=== PATIENT | male | born 1960 | race Caucasian/White ===

== ENCOUNTER 2017-09-03 15:00 | Outpatient (RCR) | payer BC ==
[2015-10-06 09:46] VITALS: Wt 88.6 kg
[~2017-09-03 15:00] MED LIST: ACET500T68 PO; ATOR10TA24 PO; CEP500 PO; LEVO750T27 PO; LISI-374 PO; LISI20TA29 PO; LOR5/325 PO; METR-160 PO; MULT1TAB54 PO; OXYC-865 PO; OXYC5TAB38 PO; PER PO; PRED20TA6 PO; RIVA10TA PO; XELOD500PT GT
[2017-09-03 15:28] VITALS: BP 158/103
[2017-09-03 15:40] LABS: PLATELET COUNT, AUTOMATED 194 K/uL (150-450)
--- NOTE | 2017-09-03 20:22 | ONCOLOGY FOLLOW UP NOTE ---
EVENT DATE: September 03, 2017 DIAGNOSES 1. 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 2. Hypertension. 3. Diverticulitis. 4. Hypercholesterolemia. CHIEF COMPLAINT The patient is here today for followup of his colon cancer. ONCOLOGY HISTORY The patient is a 57-year-old male. The patient is here today for followup of his colon cancer. He is doing really very well and his skin rash from capecitabine is getting much better currently. PRESENTATION Left upper quadrant pain associated with intermittent fevers. DIAGNOSTIC EVALUATION 1. CT of abdomen and pelvis done on September 17, 2015 revealed persistent decreased descending colon wall thickening and surrounding inflammation. There may be organizing fluid collection seen posteriorly measuring approximately 3.6 x 4 x 2 x 3.5 cm; however, this collection is not completely walled off at the time of the scan. Possibilities could be colonic mass with resolving walled off perforation. There was no internal gas or free air in the abdomen. 2. Colonoscopy done on October 04, 2015 showed an obstruction at 45 cm. Biopsies were obtained and came back positive for moderately differentiated invasive colonic adenocarcinoma. PROCEDURE Left hemicolectomy with primary anastomosis done on October 05, 2015. PATHOLOGY This came back positive for descending colon invasive, moderately differentiated adenocarcinoma with 16 lymph nodes negative for metastasis. Tumor penetrates through the serosa and minimally enters into the pericolonic adipose tissue. Histology grade as low grade, moderately differentiated. Lymphovascular invasion was negative. Margins were negative. 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 TREATMENT The patient received two cycles of capecitabine, completed in January 2016 and treatment was started because of severe skin reaction with hand/foot syndrome and allergic skin reaction. HISTORY OF PRESENT ILLNESS The patient is here today for followup of his colon cancer. He is doing fine currently and denies any complaint today. PAST MEDICAL HISTORY 1. Diverticulitis. 2. Hypercholesterolemia. 3. Hypertension. 4. Descending colon carcinoma. PAST SURGICAL HISTORY 1. Collar bone fracture. 2. Hip replacement. 3. Colonoscopy on October 04, 2015. 4. Left hemicolectomy with primary anastomosis on October 05, 2015. FAMILY HISTORY Grandparent had cancer and also congestive heart failure. Father had diabetes mellitus. SOCIAL HISTORY The patient is with a daughter and granddaughter. CURRENT MEDICATIONS 1. Hydrocodone/acetaminophen 5/325 mg one tablet q.4-6h. p.r.n. 2. Lisinopril 20 mg tablet. 3. Atorvastatin 10 mg tablet daily. 4. Tylenol p.r.n. 5. Xeloda 1650 mg twice daily for two weeks every 3-week cycle. ALLERGIES No known drug allergies. REVIEW OF SYSTEMS CONSTITUTIONAL: No appetite or weight change. No fever, chills or sweating. No recent infection. HEENT: Ears: No tinnitus or hearing problem. Nose: No nasal discharge or epistaxis. Throat: No sore throat or mouth ulcers. Eyes: No diplopia or visual changes. RESPIRATORY: No shortness of breath. No cough, expectoration or hemoptysis. CARDIOVASCULAR: No chest pain, orthopnea, or paroxysmal nocturnal dyspnea (PND) . No edema. No palpitations. GASTROINTESTINAL: No nausea or vomiting. No diarrhea or constipation. No change in bowel movements. No heartburn or swallowing difficulties. No abdominal pain. No jaundice. No hematemesis, melena or rectal bleeding. GENITOURINARY: No hematuria or dysuria. MUSCULOSKELETAL: No pain in the muscles, joints or bones. NEUROLOGICAL: No tingling or numbness in the hands or feet. No headaches or convulsions. HEMATOLOGIC/LYMPHATIC: No bleeding or easy bruising. No weakness or fatigue. No enlarged lymph nodes. SKIN: No skin rash or lumps. PSYCHIATRIC: No anxiety or depression. PHYSICAL EXAMINATION GENERAL: Looks stable. Well-developed, well-nourished, and in no acute distress. VITAL SIGNS: Blood pressure 158/103, pulse 97 per minute, respirations 16 per minute, temperature 98.4, pulse ox 94% on room air. HEENT: Head: Atraumatic. No sinus tenderness to palpation. Eyes: No icterus or conjunctivitis. Mouth and throat: No oral thrush or mucositis. NECK: Supple. No cervical or supraclavicular lymphadenopathy. LUNGS: Clear to auscultation and percussion bilaterally. HEART: Regular rate and rhythm. No gallops, murmurs, clicks or rubs. ABDOMEN: Soft and lax. No tenderness. No hepatosplenomegaly. No masses. EXTREMITIES: No cyanosis, clubbing or edema. LYMPHATICS: No peripheral lymphadenopathy. NEUROLOGICAL: Conscious, alert and oriented times three. No focal motor or sensory deficits. PSYCHIATRIC: Mood and affect appear normal. SKIN: The allergic skin reaction involving both forearms is much better currently. DIAGNOSTIC DATA CBC showed a white count of 8.8, hemoglobin 17.5, hematocrit 50.5, platelets 194 ,000. Chem panel totally normal except BUN 22, creatinine 1.5. CEA is pending. ASSESSMENT 1. Stage IIa (pT3a, pN0, cM0) invasive moderately differentiated adenocarcinoma of the descending colon status post left hemicolectomy with primary anastomosis done October 05, 2015. Pathology was positive for tumor penetrating the wall into the pericolonic adipose tissue. Sixteen lymphs were negative for metastasis. No lymphovascular invasion. Margins were negative. PET/CT scan November 01, 2015 did not show any evidence of residual or recurrent disease. Patient offered treatment with FOLFOX versus capecitabine, and he elected to start capecitabine therapy, started on December 21, 2015 based on the operative note by Dr. Emerson mentioning that the mass is coming out of the colon extensively, and he thought that the patient may have residual disease. Patient received 2 cycles of chemotherapy, but he developed severe skin reaction and hand-foot syndrome, and the patient decided not to take any adjuvant chemotherapy. He is doing fine currently. He had a screening colonoscopy done on February 23, 2017, which showed rectal polyp, turned out to be a hyperplastic polyp. Patient is totally asymptomatic today and he is doing fine. I am planning to see him again in four months with CBC, chem panel and CEA. 2. Hypertension on treatment. 3. History of diverticulitis. PLAN 1. Continue followup. 2. Patient to return in four months with CBC, chem panel and CEA. 3. Patient to contact us for any new concern or complaints. ANT
== END 2017-09-25 16:17 | disposition home or self-care (01) ==
LOC: SPU 15:00
PROVIDERS: ATTEND Internal Medicine Hematology
DX: Z85.038 Personal history of other malignant neoplasm of large intestine (principal); I10 Essential (primary) hypertension; E78.00 Pure hypercholesterolemia, unspecified; Z79.899 Other long term (current) drug therapy; Z86.718 Personal history of other venous thrombosis and embolism; Z92.21 Personal history of antineoplastic chemotherapy
CPT/HCPCS: 36415; 82040; 82247; 82310; 82374; 82378; 82435; 82565; 82947; 84075; 84132; 84155; 84295; 84450; 84460; 84520; 85025; 99212

== ENCOUNTER 2018-01-07 14:19 | Outpatient (RCR) | payer BC ==
[2015-10-06 09:46] VITALS: Wt 83.3 kg
[2018-01-07 14:28] VITALS: BP 114/88
[2018-01-07 14:48] LABS: PLATELET COUNT, AUTOMATED 212 K/uL (150-450)
--- NOTE | 2018-01-07 17:33 | ONCOLOGY FOLLOW UP NOTE ---
EVENT DATE: January 07, 2018 DIAGNOSES 1. 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 2. Hypertension. 3. Diverticulitis. 4. Hypercholesterolemia. CHIEF COMPLAINT The patient is here today for followup of his colon cancer. ONCOLOGY HISTORY The patient is a 57-year-old male. The patient is here today for followup of his colon cancer. He is doing really very well and his skin rash from capecitabine is getting much better currently. PRESENTATION Left upper quadrant pain associated with intermittent fevers. DIAGNOSTIC EVALUATION 1. CT of abdomen and pelvis done on September 17, 2015 revealed persistent decreased descending colon wall thickening and surrounding inflammation. There may be organizing fluid collection seen posteriorly measuring approximately 3.6 x 4 x 2 x 3.5 cm; however, this collection is not completely walled off at the time of the scan. Possibilities could be colonic mass with resolving walled off perforation. There was no internal gas or free air in the abdomen. 2. Colonoscopy done on October 04, 2015 showed an obstruction at 45 cm. Biopsies were obtained and came back positive for moderately differentiated invasive colonic adenocarcinoma. PROCEDURE Left hemicolectomy with primary anastomosis done on October 05, 2015. PATHOLOGY This came back positive for descending colon invasive, moderately differentiated adenocarcinoma with 16 lymph nodes negative for metastasis. Tumor penetrates through the serosa and minimally enters into the pericolonic adipose tissue. Histology grade as low grade, moderately differentiated. Lymphovascular invasion was negative. Margins were negative. 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 TREATMENT The patient received two cycles of capecitabine, completed in January 2016 and treatment was started because of severe skin reaction with hand/foot syndrome and allergic skin reaction. HISTORY OF PRESENT ILLNESS The patient is here today for followup of his colon cancer. He is doing fine currently except for occasional back pain sometimes. PAST MEDICAL HISTORY 1. Diverticulitis. 2. Hypercholesterolemia. 3. Hypertension. 4. Descending colon carcinoma. PAST SURGICAL HISTORY 1. Collar bone fracture. 2. Hip replacement. 3. Colonoscopy on October 04, 2015. 4. Left hemicolectomy with primary anastomosis on October 05, 2015. FAMILY HISTORY Grandparent had cancer and also congestive heart failure. Father had diabetes mellitus. SOCIAL HISTORY The patient is with a daughter and granddaughter. CURRENT MEDICATIONS 1. Hydrocodone/acetaminophen 5/325 mg one tablet q.4-6h. p.r.n. 2. Lisinopril 20 mg tablet. 3. Atorvastatin 10 mg tablet daily. 4. Tylenol p.r.n. 5. Xeloda 1650 mg twice daily for two weeks every 3-week cycle. ALLERGIES No known drug allergies. REVIEW OF SYSTEMS CONSTITUTIONAL: No appetite or weight change. No fever, chills or sweating. No recent infection. HEENT: Ears: No tinnitus or hearing problem. Nose: No nasal discharge or epistaxis. Throat: No sore throat or mouth ulcers. Eyes: No diplopia or visual changes. RESPIRATORY: No shortness of breath. No cough, expectoration or hemoptysis. CARDIOVASCULAR: No chest pain, orthopnea, or paroxysmal nocturnal dyspnea (PND) . No edema. No palpitations. GASTROINTESTINAL: No nausea or vomiting. No diarrhea or constipation. No change in bowel movements. No heartburn or swallowing difficulties. No abdominal pain. No jaundice. No hematemesis, melena or rectal bleeding. GENITOURINARY: No hematuria or dysuria. MUSCULOSKELETAL: The patient has back pain occasionally. NEUROLOGICAL: No tingling or numbness in the hands or feet. No headaches or convulsions. HEMATOLOGIC/LYMPHATIC: No bleeding or easy bruising. No weakness or fatigue. No enlarged lymph nodes. SKIN: No skin rash or lumps. PSYCHIATRIC: No anxiety or depression. PHYSICAL EXAMINATION GENERAL: Looks stable. Well-developed, well-nourished, and in no acute distress. VITAL SIGNS: Blood pressure 114/88, pulse 82 per minute, respirations 16 per minute, temperature 98, pulse ox 95% on room air. HEENT: Head: Atraumatic. No sinus tenderness to palpation. Eyes: No icterus or conjunctivitis. Mouth and throat: No oral thrush or mucositis. NECK: Supple. No cervical or supraclavicular lymphadenopathy. LUNGS: Clear to auscultation and percussion bilaterally. HEART: Regular rate and rhythm. No gallops, murmurs, clicks or rubs. ABDOMEN: Soft and lax. No tenderness. No hepatosplenomegaly. No masses. EXTREMITIES: No cyanosis, clubbing or edema. LYMPHATICS: No peripheral lymphadenopathy. NEUROLOGICAL: Conscious, alert and oriented times three. No focal motor or sensory deficits. PSYCHIATRIC: Mood and affect appear normal. SKIN: The allergic skin reaction involving both forearms is much better currently. DIAGNOSTIC DATA CBC showed a white count of 9.1, hemoglobin 17.4, hematocrit 50, platelets 212, 000. Chem panel totally normal except sodium 136, BUN 22, creatinine 1.6. ASSESSMENT 1. Stage IIa (pT3a, pN0, cM0) invasive moderately differentiated adenocarcinoma of the descending colon status post left hemicolectomy with primary anastomosis done October 05, 2015. Pathology was positive for tumor penetrating the wall into the pericolonic fat. Sixteen lymphs were negative for metastasis. No lymphovascular invasion. Margins were negative. PET/CT scan November 01, 2015 did not show any evidence of residual or recurrent disease. Patient offered treatment with FOLFOX versus capecitabine, and he elected to start capecitabine therapy, started on December 21, 2015 based on the operative note by Dr. Emerson mentioning that the mass is coming out of the colon extensively, and he thought that the patient may have residual disease. Patient received 2 cycles of chemotherapy, but he developed severe skin reaction with hand-foot syndrome, and the patient decided not to take any adjuvant chemotherapy. He is doing fine currently. He had a screening colonoscopy done on February 23, 2017, which showed rectal polyp, turned out to be a hyperplastic polyp. Patient currently is totally asymptomatic except for some back pain occasionally. I am planning to continue followup. I will see him again in four months with CBC, chem panel and CEA. 2. Hypertension, on treatment. 3. History of diverticulitis. PLAN 1. Continue followup. 2. Patient to return in four months with CBC, chem panel and CEA. 3. Patient to contact us for any new concern or complaints. ANT
== END 2018-02-05 08:39 | disposition home or self-care (01) ==
LOC: SPU 14:19
PROVIDERS: ATTEND Internal Medicine Hematology
DX: Z85.038 Personal history of other malignant neoplasm of large intestine (principal); I10 Essential (primary) hypertension; E78.00 Pure hypercholesterolemia, unspecified; Z79.899 Other long term (current) drug therapy; Z86.718 Personal history of other venous thrombosis and embolism; Z92.21 Personal history of antineoplastic chemotherapy
CPT/HCPCS: 36415; 82040; 82247; 82310; 82374; 82378; 82435; 82565; 82784; 82947; 84075; 84132; 84155; 84295; 84450; 84460; 84520; 85025; 99212

== ENCOUNTER 2018-06-04 14:15 | Outpatient (RCR) | payer BC ==
[2015-10-06 09:46] VITALS: Wt 83.6 kg
[~2018-06-04 14:15] MED LIST changes: -METR-160 PO; +METR500T15 PO
[2018-06-04 14:46] VITALS: BP 136/83
[2018-06-04 15:05] LABS: PLATELET COUNT, AUTOMATED 215 K/uL (150-450)
--- NOTE | 2018-06-04 19:10 | [facility] ONCOLOGY NOTE ---
EVENT DATE: June 04, 2018 DIAGNOSES 1. Stage II (pT3a pN0 cM0) invasive, moderately differentiated adenocarcinoma of the ascending colon. 2. Hypertension. 3. Diverticulitis. 4. Hypercholesterolemia. CHIEF COMPLAINT Patient is here today for followup of his colon cancer. ONCOLOGY HISTORY The patient is a 58-year-old male. The patient is here today for followup of his colon cancer. He is doing really very well, and his skin rash from CAPECITABINE is getting much better currently. PRESENTATION Left upper quadrant pain associated with intermittent fevers. DIAGNOSTIC EVALUATION 1. CT of abdomen and pelvis done on September 17, 2015, revealed persistent decreased descending colon wall thickening and surrounding inflammation. There may be organizing fluid collection seen posteriorly measuring approximately 3.6 x 4 x 2 x 3.5 cm; however, this collection is not completely walled off at the time of the scan. Possibilities could be colonic mass with resolving walled-off perforation. There was no internal gas or free air in the abdomen. 2. Colonoscopy done on October 04, 2015, showed an obstruction at 45 cm. Biopsies were obtained and came back positive for moderately differentiated, invasive colonic adenocarcinoma. PROCEDURE Left hemicolectomy with primary anastomosis done on October 05, 2015. PATHOLOGY This came back positive for descending colon invasive, moderately differentiated adenocarcinoma with 16 lymph nodes negative for metastasis. Tumor penetrates through the serosa and minimally enters into the pericolonic adipose tissue. Histology grade is low grade, moderately differentiated. Lymphovascular invasion was negative. Margins were negative. STAGE Stage II (pT3a pN0 cM0). TREATMENT The patient received two cycles of CAPECITABINE, completed in January 2016, and treatment was stopped because of severe skin reaction with hand-foot syndrome and allergic skin reaction. HISTORY OF PRESENT ILLNESS The patient is here today for followup of his colon cancer. He is doing very well currently and denies any complaints today. PAST MEDICAL HISTORY 1. Diverticulitis. 2. Hypercholesterolemia. 3. Hypertension. 4. Descending colon carcinoma. PAST SURGICAL HISTORY 1. Collar bone fracture. 2. Hip replacement. 3. Colonoscopy on October 04, 2015. 4. Left hemicolectomy with primary anastomosis on October 05, 2015. FAMILY HISTORY Grandparent had cancer and also congestive heart failure. Father had diabetes mellitus. SOCIAL HISTORY The patient is with a daughter and granddaughter. CURRENT MEDICATIONS 1. Hydrocodone/acetaminophen 5/325 mg one tablet q.4-6 hours p.r.n. 2. Lisinopril 20 mg tablet. 3. Atorvastatin 10 mg tablet daily. 4. Tylenol p.r.n. 5. Xeloda 1650 mg twice daily for two weeks, every three-week cycle. ALLERGIES No known drug allergies. REVIEW OF SYSTEMS CONSTITUTIONAL: No appetite or weight change. No fever, chills, or sweating. No recent infection. HEENT: Ears: No tinnitus or hearing problem. Nose: No nasal discharge or epistaxis. Throat: No sore throat or mouth ulcers. Eyes: No diplopia or visual changes. RESPIRATORY: No shortness of breath. No cough, expectoration, or hemoptysis. CARDIOVASCULAR: No chest pain, orthopnea, or paroxysmal nocturnal dyspnea (PND). No edema. No palpitations. GASTROINTESTINAL: No nausea or vomiting. No diarrhea or constipation. No change in bowel movements. No heartburn or swallowing difficulties. No abdominal pain. No jaundice. No hematemesis, melena, or rectal bleeding. GENITOURINARY: No hematuria or dysuria. MUSCULOSKELETAL: No pain in the muscles, joints, or bones. NEUROLOGICAL: No tingling or numbness in the hands or feet. No headaches or convulsions. HEMATOLOGIC/LYMPHATIC: No bleeding or easy bruising. No weakness or fatigue. No enlarged lymph nodes. SKIN: No skin rash or lumps. PSYCHIATRIC: No anxiety or depression. PHYSICAL EXAMINATION GENERAL: Looks stable. Well developed, well nourished, and in no acute distress. VITAL SIGNS: Blood pressure 136/83, pulse 94 per minute, respirations 16 per minute, temperature 97.1, pulse ox 96% on room air. HEENT: Head: Atraumatic. No sinus tenderness to palpation. Eyes: No icterus or conjunctivitis. Mouth and Throat: No oral thrush or mucositis. NECK: Supple. No cervical or supraclavicular lymphadenopathy. LUNGS: Clear to auscultation and percussion bilaterally. HEART: Regular rate and rhythm. No gallops, murmurs, clicks, or rubs. ABDOMEN: Soft and lax. No tenderness. No hepatosplenomegaly. No masses. EXTREMITIES: No cyanosis, clubbing, or edema. LYMPHATICS: No peripheral lymphadenopathy. NEUROLOGICAL: Conscious, alert, and oriented times three. No focal motor or sensory deficits. PSYCHIATRIC: Mood and affect appear normal. SKIN: No skin rash, bruise, or purpuric eruption. DIAGNOSTIC DATA Pending. ASSESSMENT 1. Stage IIA (pT3a, pN0, cM0) invasive, moderately differentiated adenocarcinoma of the descending colon, status post left hemicolectomy with primary anastomosis done October 05, 2015. Pathology was positive for tumor penetrating the wall into the pericolonic fat. Sixteen lymphs were negative for metastasis. No lymphovascular invasion. Margins were negative. PET/CT scan done November 01, 2015, did not show any evidence of residual or recurrent disease. Patient offered treatment with FOLFOX versus CAPECITABINE, and he elected to start CAPECITABINE therapy which was started on December 21, 2015, based on the operative note by Dr. Emerson mentioning that the mass is coming out of the colon extensively, and he thought that the patient may have residual disease. Patient received two cycles of chemotherapy of CAPECITABINE, but he developed severe skin reaction and hand-foot syndrome, and the patient decided not to take any adjuvant chemotherapy. He did fine after that. He had a screening colonoscopy February 23, 2017, which showed rectal polyp. It turned out to be a hyperplastic polyp. I am planning to continue followup. I will see him again in four months with CBC, chemistry panel, and CEA. Patient currently is doing very well, and he is totally asymptomatic. 2. Hypertension, on treatment. 3. History of diverticulitis. PLAN 1. Continue followup. 2. Patient to return in four months with CBC, chem panel, and CEA. 3. Patient to contact us for any new concern or complaints. MTDD
== END 2018-07-12 12:45 | disposition home or self-care (01) ==
LOC: ONC 14:15
PROVIDERS: ATTEND Internal Medicine Hematology
DX: Z85.038 Personal history of other malignant neoplasm of large intestine (principal); I10 Essential (primary) hypertension; E78.00 Pure hypercholesterolemia, unspecified; Z79.899 Other long term (current) drug therapy; Z86.718 Personal history of other venous thrombosis and embolism; Z92.21 Personal history of antineoplastic chemotherapy
CPT/HCPCS: 36415; 82040; 82247; 82310; 82374; 82378; 82435; 82565; 82947; 84075; 84132; 84155; 84295; 84450; 84460; 84520; 85025; 99212